=== PATIENT | male | born 1995 | race Caucasian/White ===

== ENCOUNTER 2016-07-14 13:01 | Emergency (ER) | payer OTHER ==
[2016-07-14 13:14] VITALS: BP 139/76; PULSE 114; TEMP 98.2; BMI 34.2
--- NOTE | 2016-07-14 13:59 | PDOC ---
History of Present Illness - General Chief Complaint: Injury Stated Complaint: LT HAND LACERATION Time Seen by Provider: 07/14/16 13:22 History Source: Patient - History of Present Illness Occurred: reports: just prior to arrival Upper Extremity Pain Location: left: 5th finger Past History - Past Medical History Allergies/Adverse Reactions: Allergies Allergy/AdvReac Type Severity Reaction Status Date / Time No Known Allergies Allergy Verified 11/16/12 21:08 Home Medications: Ambulatory Orders No Home Medications 0 dose .ROUTE UTDICT 11/17/12 Other medical history: denies - Psycho/Social/Smoking Cessation Hx Suicidal Ideation: No Smoking Status: No Smoking History: Never smoked Have you smoked in the past 12 months: No Number of Cigarettes Smoked Daily: 0 Information on smoking cessation initiated: No Hx Alcohol Use: No Drug/Substance Use Hx: No Review of Systems - Review of Systems Constitutional: No: Chills, Fever Integumentary: No: Erythema *Physical Exam - Vital Signs Last Vital Signs Temp Pulse Resp BP Pulse Ox 98.2 F 114 H 20 139/76 98 07/14/16 13:09 07/14/16 13:09 07/14/16 13:09 07/14/16 13:09 07/14/16 13:09 - Physical Exam General Appearance: Yes: Appropriately Dressed. No: Apparent Distress HEENT: positive: Normal Voice Neck: positive: Supple Respiratory/Chest: negative: Respiratory Distress Extremity: positive: Other (superficial lac to volar aspect of L hand near base of L 5th MCP J, FROMI to 5th digit, sensation intact) Integumentary: positive: Dry, Warm Neurologic: positive: Fully Oriented, Alert, Normal Mood/Affect Procedures - Laceration/Wound Repair Left 5th digit Hand Wound Length: to 2.5 cm Wound Explored: clean Wound's Depth, Shape: superficial Irrigated w/ Saline: Yes Betadine Prep: Yes Anesthesia: 1% Lidocaine Amount of Anesthetic (ccs): 7 Wound Repaired With: Sutures Suture Size/Type: 4:0 (6) Sterile Dressing Applied: Yes (bacitracicn, xeroform, 2x2 and soft form dressing placed) Medical Decision Making - Medical Decision Making 07/14/16 13:56 21-year-old male, no significant history, tetanus up-to-date, here with left hand lac while handling a knife today. States knife accidentally "sliced" hand. No sensory changes. Patient well-appearing with approximately 1 cm superficial lac to volar aspect L hand near base of L 5th mcp joint. No obvious complications at this time. Wound repaired with sutures without any complication. Wound care instructions given to patient. Reasons to return to ED discussed 07/14/16 13:59 *DC/Admit/Observation/Transfer Diagnosis at time of Disposition: Laceration of hand Qualifiers: Encounter type: initial encounter Laterality: left Qualified Code(s): S61.412A - Laceration without foreign body of left hand, initial encounter - Discharge Dispostion Disposition: HOME Condition at time of disposition: Good - Patient Instructions Printed Discharge Instructions: Laceration Repair Additional Instructions: Keep dressing in place for at least 24 hours after which one can be opened to air. You can gently cleaned wound with mild soap and water after 24 hours to prevent crusting over the suture knots. You can also apply an antibiotic ointment twice a day until sutures are removed. Return for redness, discharge or fever Sutures are removed in 7 days
== END 2016-07-14 14:01 | disposition home or self-care (01) ==
LOC: JER 13:01 → JERFT 13:01
PROC: 0HQGXZZ Repair Left Hand Skin, External Approach (ICD-10-PCS; principal; 2016-07-14)
DX: S61.412A Laceration without foreign body of left hand, initial encounter (principal); W26.0XXA Contact with knife, initial encounter; Y93.89 Activity, other specified; Y92.89 Other specified places as the place of occurrence of the external cause
CPT/HCPCS: 99281-25

== ENCOUNTER 2016-09-07 22:39 | Emergency (ER) | payer OTHER ==
[2016-09-07 22:58] VITALS: BP 122/77; PULSE 153; TEMP 102.6; BMI 33.5
--- NOTE | 2016-09-08 00:01 | PDOC ---
History of Present Illness - General Chief Complaint: Cold Symptoms Stated Complaint: COLD SYMPTOMS Time Seen by Provider: 09/07/16 23:23 History Source: Patient Exam Limitations: No Limitations - History of Present Illness Initial Comments: 09/08/16 00:44 21-year-old male presents to the emergency department complaining of sore throat 8 hours with fever, chills but denies nausea/vomiting, headache, dizziness, lightheadedness, difficulty swallowing, chest pain, shortness of breath, abdominal pains, urinary symptoms, general malaise. Patient took Tylenol 4 hours ago. Timing/Duration: reports: yesterday Past History - Past Medical History Allergies/Adverse Reactions: Allergies Allergy/AdvReac Type Severity Reaction Status Date / Time No Known Allergies Allergy Verified 09/07/16 22:58 Home Medications: Ambulatory Orders No Home Medications 0 dose .ROUTE UTDICT 11/17/12 Other medical history: Pt denies - Psycho/Social/Smoking Cessation Hx Suicidal Ideation: No Smoking Status: No Smoking History: Never smoked Have you smoked in the past 12 months: No Number of Cigarettes Smoked Daily: 0 Information on smoking cessation initiated: No Hx Alcohol Use: No Drug/Substance Use Hx: No Substance Use Type: None Review of Systems - Review of Systems Able to Perform ROS?: Yes Comments:: 09/08/16 00:45 CONSTITUTIONAL: Absent: fever, chills, diaphoresis, generalized weakness, malaise, loss of appetite HEENT: +throat pain Absent: rhinorrhea, nasal congestion, throat swelling, difficulty swallowing, mouth swelling, ear pain, eye pain, visual Changes CARDIOVASCULAR: Absent: chest pain, loss of consciousness, palpitations, irregular heart rate, peripheral edema RESPIRATORY: Absent: cough, shortness of breath, dyspnea with exertion, orthopnea, wheezing, stridor, hemoptysis GASTROINTESTINAL: Absent: abdominal pain, abdominal distension, nausea, vomiting, diarrhea, constipation, melena, hematochezia GENITOURINARY: Absent: dysuria, frequency, urgency, hesitancy, hematuria, flank pain, genital pain MUSCULOSKELETAL: Absent: myalgia, arthralgia, joint swelling SKIN: Absent: rash, itching, pallor HEMATOLOGIC/IMMUNOLOGIC: Absent: easy bleeding, easy bruising, lymphadenopathy, frequent infections ENDOCRINE: Absent: unexplained weight gain, unexplained weight loss, heat intolerance, cold intolerance NEUROLOGIC: Absent: headache, focal weakness or paresthesias, dizziness, unsteady gait, seizure, mental status changes, bladder or bowel incontinence PSYCHIATRIC: Absent: anxiety, depression, suicidal or homicidal ideation, hallucinations. Is the patient limited Persian proficient: No *Physical Exam - Vital Signs Last Vital Signs Temp Pulse Resp BP Pulse Ox 102.6 F H 153 H 20 122/77 98 09/07/16 22:55 09/07/16 22:55 09/07/16 22:55 09/07/16 22:55 09/07/16 22:55 - Physical Exam Comments: 09/08/16 00:45 GENERAL: Well developed, well nourished. Awake and alert. No acute distress. HEENT: +Oropharynx/right tonsillar region=erythematous with pustules Neg OIL EXPELLER Normocephalic, atraumatic. PERRLA, EOMI. No conjunctival pallor. Sclera are non- icteric. Moist mucous membranes. NECK: Supple. Full ROM. No JVD. Carotid pulses 2+ and symmetric, without bruits. No thyromegaly. No lymphadenopathy. CARDIOVASCULAR: Regular rate and rhythm. No murmurs, rubs, or gallops. Distal pulses are 2+ and symmetric. PULMONARY: No evidence of respiratory distress. Lungs clear to auscultation bilaterally. No wheezing, rales or rhonchi. ABDOMINAL: Soft. Non-tender. Non-distended. No rebound or guarding. No organomegaly. Normoactive bowel sounds. MUSCULOSKELETAL Normal range of motion at all joints. No bony deformities or tenderness. No CVA tenderness. EXTREMITIES: No cyanosis. No clubbing. No edema. No calf tenderness. SKIN: Warm and dry. Normal capillary refill. No rashes. No jaundice. NEUROLOGICAL: Alert, awake, appropriate. Cranial nerves 2-12 intact. No deficits to light touch and temperature in face, upper extremities and lower extremities. No motor deficits in the in face, upper extremities and lower extremities. Normoreflexic in the upper and lower extremities. Normal speech. Toes are down- going bilaterally. Gait is normal without ataxia. PSYCHIATRIC: Cooperative. Good eye contact. Appropriate mood and affect. *DC/Admit/Observation/Transfer Diagnosis at time of Disposition: Tonsillitis with exudate - Discharge Dispostion Disposition: HOME Condition at time of disposition: Stable Admit: No - Referrals Referrals: Naman Richmond MD [Primary Care Provider] - Geoff Tran MD [Staff Physician] - - Patient Instructions Printed Discharge Instructions: DI for Fever (Symptom) -- Adult, DI for Pharyngitis/Tonsillopharyngitis -- Adult Additional Instructions: Clinically it appears that you have tonsillitis Tylenol alternating with Motrin for pain and fever Follow with the ENT as listed on your discharge and or your PMD Antibiotics as prescribed Return back to the emergency department for severe/persistent or worsening symptoms.
[2016-09-08] MEDS ORDERED: IBUPROFEN 400 MG TABLET (FP) PO ONE ×2 (00:44→01:06)
[2016-09-08] MEDS ORDERED: AMOX TR/POT CLAV 875MG/125MG TABLETS (FP) PO ONE (01:38)
[2016-09-08] MEDS ORDERED: AMOX TR/POT CLAV 875MG/125MG TABLETS (FP) ONE (01:47)
== END 2016-09-08 02:23 | disposition home or self-care (01) ==
LOC: JER 22:39
DX: J03.90 Acute tonsillitis, unspecified (principal)
CPT/HCPCS: 87070; 87430; 87804; 99282-25